=== PATIENT | male | born 1995 | race Caucasian/White ===

== ENCOUNTER 2017-03-30 21:06 | Emergency (ER) | payer OTHER ==
[2017-03-30] MEDS ORDERED: FAMOTIDINE 20 MG TAB PO ONE (21:11)
[2017-03-30] MEDS ORDERED: diphenhydrAMINE 25 MG CAP PO ONE (21:11)
--- NOTE | 2017-03-30 21:14 | EDPHY ---
H & P Time Seen by Provider: 03/30/17 21:10 HPI/ROS: CHIEF COMPLAINT: Possible right pinky finger dislocation HISTORY OF PRESENT ILLNESS: 21-year-old male arrives by ambulance complaining of acute right pinky finger injury after he is playing basketball, stubbed his finger noted deformity at the PIP joint of the right 5th digit. No paresthesia. Intact skin. No other injury. PHYSICAL EXAM (Prior to examination, patient consented to physical exam, hands were washed and my usual and customary physical exam procedures followed) 1) GENERAL: Well-developed, well-nourished, alert and oriented. Appears to be in no acute distress. 2) HEAD: Normocephalic 3) HEENT: sclera anicteric 4) LUNGS: Breathing comfortably. 5) SKIN: intact skin 6) MUSCULOSKELETAL: right 5th digit at the PIP joint lateral displacement noted . 7) NEUROLOGIC: Full sensation two-point discrimination distally Constitutional: Initial Vital Signs Temperature (C) 37 C 03/30/17 21:12 Heart Rate 96 03/30/17 21:12 Respiratory Rate 20 03/30/17 21:12 Blood Pressure 137/85 H 03/30/17 21:12 O2 Sat (%) 96 03/30/17 21:12 O2 Delivery Mode Room Air Allergies/Adverse Reactions: Sulfa (Sulfonamide Antibiotics) Allergy (Verified 03/30/17 21:11) MDM/Departure - MDM Imaging Results: Imaging Impressions Finger X-Ray 03/30/17 21:10 Impression: Ulnar dislocation of the right fifth digit at the PIP joint with angulation. Finger X-Ray 03/30/17 21:21 Impression: 1. Good alignment right fifth digit postreduction. 2. Small chip or avulsion fracture along the ulnar margin distal head right fifth digit proximal phalanx at the PIP joint level. Procedures: Procedure: Dislocation reduction. I reviewed the patient's x-rays. The dislocation of the right 5th digit at the PIP joint was reduced using traction and counter traction technique without complications. Post reduction the patient's neurovascular exam is normal. Post reduction x-ray demonstrates reduction of the joint to the anatomic position. The procedure was performed by myself. Procedure: Splint A shan-tape and aluminum finger splint was applied by ER career resource technician. After application of the splint I returned and re-examined the patient. The splint was adequately immobilizing the joint and distal to the splint the patient's circulation and sensation were intact. Patient shows no signs of compartment syndrome. Was given orthopedic precautions. Medications Given: Discontinued Medications Diphenhydramine HCl (Benadryl) 25 mg PO EDNOW ONE Stop: 03/30/17 21:12 Last Admin: 03/30/17 21:30 Dose: Not Given Famotidine (Pepcid) 40 mg PO EDNOW ONE Stop: 03/30/17 21:12 Last Admin: 03/30/17 21:31 Dose: Not Given ED Course/Re-evaluation: Care of patient under supervision of secondary supervising physician Dr Bhatia . Patient has been re-evaluated with serial exams. He has been informed of a small avulsion fracture at the PIP joint. Recommend follow up with Hand surgery. Usual and customary orthopedic precautions instructions provided - Depart Disposition: Home, Routine, Self-Care Clinical Impression: Right 5th digit dislocation Condition: Good Instructions: Finger Dislocation (ED) Additional Instructions: FOLLOW UP WITH ORTHO MBhanu THIS WEEK FOR FOLLOW UP CARE RETURN TO ER NEEDED IF PROBLEMS Referrals: Enio Benítez MD [Medical Doctor] - As per Instructions
[2017-03-30 21:16] VITALS: BP 137/85; PULSE 96; RESP 20; TEMP 98.6; O2SAT 96
== END 2017-03-30 21:38 | disposition home or self-care (01) ==
PROC: 0RSWXZZ Reposition Right Finger Phalangeal Joint, External Approach (ICD-10-PCS; principal; 2017-03-30)
DX: S63.286A Dislocation of proximal interphalangeal joint of right little finger, initial encounter (principal); W22.8XXA Striking against or struck by other objects, initial encounter; Y99.8 Other external cause status; Y93.67 Activity, basketball
CPT/HCPCS: L3925

== ENCOUNTER 2017-04-26 19:02 | Emergency (ER) | payer OTHER ==
[2017-04-26 19:08] VITALS: BP 129/79; PULSE 82; RESP 16; TEMP 98.4; O2SAT 98
--- NOTE | 2017-04-26 19:10 | EDPHY ---
H & P Stated Complaint: chin lac Time Seen by Provider: 04/26/17 19:10 HPI/ROS: HPI: This is a 21-year-old male presents with Chief Complaint: Chin laceration Location: Chin Quality: Laceration Duration: 30 minutes prior to arrival Signs and Symptoms: No bleeding, no radiation, no numbness, no weakness, no tingling, no incontinence, no decreased range of motion, no swelling, + minimal pain Timing: Sudden Severity: Moderate Context: Patient is currently up-to-date on his immunizations including tetanus presents with chin laceration status post diving for the basketball and hitting his chin on the cement approximately 30 minutes prior to arrival. He reports that it started to bleed but quickly. Twenty placed a tissue over it and applied direct pressure. His pain is 2/10 nonradiating in nature. He denies LOC/dizziness/neck pain. Modifying Factors: Direct pressure Comment: ROS: see HPI Constitutional: No fever, no chills, no weight loss Eyes: No blurred vision Respiratory: No shortness of breath, no cough Cardiovascular: No chest pain Gastrointestinal: No nausea, no vomiting no diarrhea Genitourinary: No dysuria Extremities: No myalgias Neurologic: No weakness, no numbness Skin: No rashes Hematologic: No bruising, no bleeding MEDICAL/SURGICAL/SOCIAL HISTORY: Medical history: Generally healthy. Does not take any regular medications. Surgical history: Denies Social history: College student CONSTITUTIONAL: Well-developed well-nourished polite teenage white male, awake and alert, no obvious distress HEENT: Atraumatic and normocephalic, PERRL, EOMI. no globe entrapment, no raccoon eyes. no Rowland signs.Tympanic membranes clear. No tympanic membrane rupture. Nares patent; no septal hematoma. Oropharynx clear, no exudate and moist pink mucosa. No malocclusion. no dental trauma. Airway patent. Chin shows 1.5 cm simple linear laceration. No lymphadenopathy. NECK: supple, no midline tenderness, flexion 45 degrees, extension 45 degrees, right and left lateral flexion 45 degrees. No meningismus. Cardiovascular: Normal S1/S2, regular rate, regular rhythm, without murmur rub or gallop. PULMONARY/CHEST: Symmetrical and nontender. no crepitus. Clear to auscultation bilaterally. Good air movement. No accessory muscle usage. ABDOMEN: Soft, nondistended, nontender, no ecchymosis, no rebound, no guarding , no peritoneal signs, no masses or organomegaly. No CVAT. PELVIC: no pain with rocking; bilateral hips flexion 125 degrees, extension 30 degrees, with no pain internal rotation and no pain external rotation. BACK: No midline tenderness, no paraspinous spasm, deep tendon reflexes 2/2, no pain with straight leg raise EXTREMITIES: 2/2 pulses, no deformities, no clubbing, no cyanosis or edema. NEUROLOGICAL: no focal neuro deficits. GCS 15. SKIN: Warm and dry, no erythema. no rash. Good capillary refill. Source: Patient Exam Limitations: No limitations - Personal History Current Tetanus/Diphtheria Vaccine: Yes Current Tetanus Diphtheria and Acellular Pertussis (TDAP): Yes - Medical/Surgical History Hx Asthma: No Hx Chronic Respiratory Disease: No Hx Diabetes: No Hx Cardiac Disease: No Hx Renal Disease: No Hx Cirrhosis: No Hx Alcoholism: No Hx HIV/AIDS: No Hx Splenectomy or Spleen Trauma: No Other PMH: previous pinky injury - Social History Smoking Status: Never smoked Constitutional: Initial Vital Signs Temperature (C) 36.9 C 04/26/17 19:06 Heart Rate 82 04/26/17 19:06 Respiratory Rate 16 04/26/17 19:06 Blood Pressure 129/79 H 04/26/17 19:06 O2 Sat (%) 98 04/26/17 19:06 O2 Delivery Mode Room Air Allergies/Adverse Reactions: Sulfa (Sulfonamide Antibiotics) Allergy (Verified 03/30/17 21:11) Medical Decision Making Procedures: Procedure: Laceration repair. Verbal consent was obtained from the patient. The 1.5 cm simple linear laceration on the chin was anesthetized in the usual fashion using topical let gel and 4 mL of 1% lidocaine with epinephrine. The wound was irrigated, draped and explored to its base with a gloved finger. There were no deep structures involved. No tendon injury was identified. The wound was repaired with #4, 6- 0 Prolene in simple interrupted pattern. Good hemostasis was achieved and patient tolerated procedure well. Clean sterile dressing applied. The procedure was performed by myself. ED Course/Re-evaluation: Tetanus up-to-date. Wound and laceration repair ordered. No signs of neurovascular compromise/tenting of skin/compartment syndrome/ extremities and joints examined above and below area of concern and are neurovascularly intact. Differential Diagnosis: Differential diagnosis includes but is not limited to laceration, nerve injury, mandible fracture, dental trauma, concussion. - Data Points Medications Given: Discontinued Medications Tetracaine/Epinephrine/Lidocaine (Let Gel Topical) 1 ea TP EDNOW ONE Stop: 04/26/17 19:14 Last Admin: 04/26/17 19:28 Dose: 1 ea Departure - Departure Disposition: Home, Routine, Self-Care Clinical Impression: Laceration of chin without complication Qualifiers: Encounter type: initial encounter Qualified Code(s): S01.81XA - Laceration without foreign body of other part of head, initial encounter Condition: Good Instructions: Care For Your Stitches (ED), Facial Laceration (ED) Additional Instructions: Keep the dressing dry and in place for 48 hours. After 48 hours, you may remove the dressing; wash the site daily with mild soap and water; then pat dry. Take Tylenol 650 mg every 4 hours and/or ibuprofen 600 mg every 8 hours with food as needed for pain. Apply ice for 30 minutes at a time; 2-3 times per day for the next 1-2 days. Please return to the emergency room in 5-7 days to have your sutures removed. Referrals: [facility],. [Clinic] - As per Instructions
[2017-04-26] MEDS ORDERED: LET GEL TOPICAL 1 EA SYR TP ONE (19:13)
== END 2017-04-26 19:50 | disposition home or self-care (01) ==
PROC: 0HQ1XZZ Repair Face Skin, External Approach (ICD-10-PCS; principal; 2017-04-26)
DX: S01.81XA Laceration without foreign body of other part of head, initial encounter (principal); W22.8XXA Striking against or struck by other objects, initial encounter; Y99.8 Other external cause status; Y93.67 Activity, basketball

== ENCOUNTER 2017-08-15 18:45 | Emergency (ER) | payer OTHER ==
[2017-08-15 18:55] VITALS: RESP 16; TEMP 98.4
[2017-08-15] MEDS ORDERED: SKIN ADHESIVE (DERMABOND) 1 EACH TP ONE (19:32)
--- NOTE | 2017-08-15 19:49 | EDPHY ---
H & P Time Seen by Provider: 08/15/17 18:57 HPI/ROS: 22-year-old male presents complaining of tripped and hit the corner of a door, causing a laceration to his left earlobe. He also scraped his right elbow and his right pointer finger. He denies loss of consciousness he denies neck pain. Review of systems As per HPI General no fever no chills no weakness HEENT no eye pain no eye discharge. No eye redness, no sore throat Respiratory no cough, no shortness of breath Cardiac no chest pain, no peripheral edema GI no abdominal pain, no diarrhea, no constipation, no nausea, no vomiting no flank pain, no hematuria, no dysuria Musculoskeletal no myalgias, no joint pain Heme no easy bruising, no easy bleeding Endo no polyuria, no polydipsia Skin no rashes, no pruritus Neuro no syncope, no dizziness, no headaches Psych is no suicidal ideation, no homicidal ideation Past Medical/Surgical History: Non contributory Tetanus immunization up-to-date Social History: Denies alcohol drug or tobacco use Smoking Status: Never smoked Physical Exam: 22-year-old male alert and oriented no acute distress nontoxic appearance Normocephalic Extraocular muscles intact, anicteric No hemotympanum No Rowland's Left earlobe with a 1.5 cm laceration on the pinna, non gaping, no cartilage exposed Lungs clear to auscultation bilaterally no respiratory distress Heart regular rate and rhythm without murmur rub or gallop Abdomen NABS Extremities Right elbow with abrasion Right pointer finger with abrasion at distal aspect of lateral finger tip Full range of motion elbow and fingers good distal pulses Sensation intact Constitutional: Initial Vital Signs Temperature (C) 36.9 C 08/15/17 18:49 Heart Rate 75 08/15/17 18:49 Respiratory Rate 16 18 18:49 Blood Pressure 118/68 08/15/17 18:49 O2 Sat (%) 95 08/15/17 18:49 O2 Delivery Mode Room Air Allergies/Adverse Reactions: Sulfa (Sulfonamide Antibiotics) Allergy (Verified 08/15/17 18:49) Home Medications: Medication Instructions Recorded NK [No Known Home Meds] 08/15/17 Medical Decision Making Procedures: Procedure note-laceration The wound was irrigated with copious amounts of saline. Lidocaine 1% was used for local anesthetic. Dermabond skin adhesive used to approximate wound edges Patient tolerated procedure well. ED Course/Re-evaluation: Patient seen and evaluated after fall with left ear laceration, right elbow abrasion and right pointer finger abrasion Impression Ear lobe laceration Multiple abrasions Plan Dermabond to repair after extensive wound irrigation Tetanus updated Patient to follow up with primary care physician and/or return as needed for any further problems Differential Diagnosis: Lacerations, abrasions Departure - Departure Disposition: Home, Routine, Self-Care Clinical Impression: Ear lobe laceration, Abrasion, elbow without infection Condition: Good Instructions: Laceration (ED), Skin Adhesive Care (ED) Referrals: NONE *PRIMARY CARE P,. [Primary Care Provider] - As per Instructions
[2017-08-15 19:57] VITALS: BP 121/75; PULSE 74; O2SAT 97
== END 2017-08-15 19:56 | disposition home or self-care (01) ==
LOC: CED 18:45
PROC: 0HQ3XZZ Repair Left Ear Skin, External Approach (ICD-10-PCS; principal; 2017-08-15)
DX: S01.312A Laceration without foreign body of left ear, initial encounter (principal); S60.410A Abrasion of right index finger, initial encounter; W01.198A Fall on same level from slipping, tripping and stumbling with subsequent striking against other object, initial encounter